=== PATIENT | male | born 1950 | race Caucasian/White ===

== ENCOUNTER → 2017-06-20 | Outpatient (CLI) | payer MEDICARE, OTHER ==
[~2017-06-20] VITALS: Ht 182.9 cm; Wt 88.2 kg
[~2017-06-20] MED LIST: LIPITOR 40MG TA40 MG PO; MULTI VITAMINS1 TAB PO; NORCO 325 MG-51 TAB PO; PRINIVIL20 MG PO; PYRIDIUM 100MG100 MG PO; SENOKOT S 50 MG1 TAB PO; UROXATRAL10 M1 PO; VITAMIN D31000 I1 PO
[2017-06-20 12:30] VITALS: BP 147/97; PULSE 74; TEMP 98.2
== END ==
LOC: EUO 11:24
DX: N39.0 Urinary tract infection, site not specified (principal)
CPT/HCPCS: C1751

== ENCOUNTER 2017-07-02 14:34 | Outpatient (CLI) | payer MEDICARE, OTHER ==
[2017-07-02 14:44] VITALS: BP 138/91; PULSE 76; TEMP 97.3
== END 2017-07-02 16:50 | disposition home or self-care (01) ==
LOC: EUO 14:34
DX: Z45.2 Encounter for adjustment and management of vascular access device (principal); N39.0 Urinary tract infection, site not specified